=== PATIENT | male | born 1955 | race Two or more races ===

== ENCOUNTER 2024-02-16 10:59 | Emergency (ER) | payer SELFPAY ==
[~2024-02-16] VITALS: Ht 180.3 cm; Wt 129.3 kg
[2024-02-16 11:58] VITALS: BP 15/86; PULSE 65; RESP 16; TEMP 98.2; O2SAT 96
[2024-02-16 12:55] LABS: Urine Bacteria None Seen /hpf (None Seen)
[2024-02-16 13:13] LABS: Urine Blood TRACE /uL (Negative); Urine Clarity Clear (Clear); Urine Color Light-Yellow (Yellow); Urine Protein, UAD Negative (Negative); Urine Specific Gravity 1.015 (1.001-1.035); Urine Urobilinogen Normal (Negative); Urine WBC <1 /hpf (0 - 3)
== END 2024-02-16 13:35 | disposition home or self-care (01) ==
LOC: ER 10:59
DX: R33.9 Retention of urine, unspecified (principal); R30.0 Dysuria
CPT/HCPCS: 51702; 81001

== ENCOUNTER 2024-02-29 10:06 | Emergency (ER) | payer SELFPAY ==
[~2024-02-29] VITALS: Ht 180.3 cm; Wt 128.0 kg
[2024-02-29 11:43] LABS: Basophils # (auto) 0.1 10 ^3/uL (0-0.2); Basophils % (auto) 0.9 % (0.0-2.0); Eosinophils # (auto) 0.2 10 ^3/uL (0-0.8); Eosinophils % (auto) 2.1 % (0.0-7.0); Hematocrit 35.6 % (41.0-53.0); Hemoglobin 12.3 g/dL (13.5-17.5); Lymphocytes # (auto) 1.6 10 ^3/uL (0.4-5.4); Lymphocytes % (auto) 18.1 % (10.0-50.0); Mean Corpuscular Hemoglobin 30.6 pg (28.0-32.0); Mean Corpuscular Hgb Conc. 34.6 g/dL (32.0-36.0); Mean Corpuscular Volume 88.5 fL (80.0-100.0); Monocytes # (auto) 0.7 10 ^3/uL (0-1.3); Monocytes % (auto) 8.1 % (0.0-12.0); Neutrophils # (auto) 6.1 10 ^3/uL (1.6-8.6); Neutrophils % (auto) 70.8 % (37.0-80.0); Platelet Count (auto) 208 10^3/uL (140-450); Red Blood Cells 4.02 10^6/uL (4.5-5.90); Red Cell Distribution Width 13.9 % (11.8-14.3); White Blood Cell 8.6 10^3/uL (4.4-10.8)
[2024-02-29 11:49] LABS: Alanine Aminotransferase 39 U/L (7-40); Albumin 4.2 g/dL (3.2-4.8); Alkaline Phosphatase 65 U/L (46-116); Anion Gap 8 (5-15); Aspartate Aminotransferase 16 U/L (13-40); BUN/Creatinine Ratio 14.5 (10.0-20.0); Bilirubin, Total 0.3 mg/dL (0.2-1.0); Blood Urea Nitrogen 16 mg/dL (9-23); Calcium 9.6 mg/dL (8.7-10.4); Carbon Dioxide 25 mmol/L (20-30); Chloride 110 mmol/L (98-107); Glucose 114 mg/dL (74-106); Sodium 143 mmol/L (136-145)
[2024-02-29 11:50] LABS: Total Protein 6.7 g/dL (5.7-8.2)
[2024-02-29 12:17] LABS: INR 0.97 (0.9-1.15); Partial Thromboplastin Time 26.3 SEC (24.5-34.5); Prothrombin Time 10.3 sec (9.3-11.8)
[2024-03-01 00:11] VITALS: BP 144/72; PULSE 68; RESP 17; TEMP 98.7; O2SAT 96
== END 2024-03-01 00:14 | disposition left against medical advice (07) ==
LOC: ER 10:06
DX: R33.9 Retention of urine, unspecified (principal); R31.9 Hematuria, unspecified
CPT/HCPCS: 36415; 51702; 74176; 80053; 85025; 85610; 85730

== ENCOUNTER 2024-03-17 10:21 | Emergency (ER) | payer MEDICAID ==
[~2024-03-17] VITALS: Ht 180.3 cm; Wt 128.8 kg
[2024-03-17 12:10] VITALS: BP 150/77; PULSE 89; RESP 18; TEMP 97.7; O2SAT 97
== END 2024-03-17 12:14 | disposition home or self-care (01) ==
LOC: ER 10:21
DX: T83.098A Other mechanical complication of other urinary catheter, initial encounter (principal)